=== PATIENT | female | born 1950 | race Hispanic/Latino ===

== ENCOUNTER 2019-12-11 07:11 | Observation (INO) | payer MEDICARE, MEDICAID ==
[~2019-12-11] VITALS: Ht 154.9 cm; Wt 63.6 kg
[~2019-12-11 07:11] MED LIST: ACTOS15 MG PO; CLARITIN10 M1 OR; GLUCOPHAGE1000 MG PO; ZESTRIL10 MG OR; ZITHROMAX250 MG PO; ZOCOR40 MG OR
--- NOTE | 2019-12-11 07:11 | NUR ---
PATIENT TO ROOM VIA WHEELCHAIR AND PHYSICIAN AT BEDSIDE FOR EXAM
--- NOTE | 2019-12-11 07:30 | NUR ---
PT C/O LEFT SIDED CHEST PAIN STARTING 3 DAYS PRIOR THAT RADIATES TO BACK. PATIENT SHOWING SINUS JESSICA AT A RATE OF 59. PATIENT UPDATED ON PLAN OF CARE AND WAIT TIME. CALL MARTINEZ WITHIN REACH.
[2019-12-11] MEDS ORDERED: SIMVASTATIN10 MG PO (07:52)
[2019-12-11] MEDS ORDERED: FARXIGA10 MG PO (07:52)
--- NOTE | 2019-12-11 08:00 | NUR ---
PATIENT REQUESTING TO TAKE PRESCRIPTION MEDICATIONS. OK WITH HER TAKING MEDICATIONS.
--- NOTE | 2019-12-11 08:20 | NUR ---
COVID SWAB COLLECTED. PT TOLERATED WELL.
[2019-12-11 08:29] LABS: HEMOGLOBIN 12.6 g/dl (12.0-16.0); IMMATURE GRANULOCYTES 0.2 % (0.0-5.0); MEAN CELL VOLUME 92.5 fL CALC (80.0-100.0); MEAN CORPUSCULAR HGB 29.6 pG CALC (26.0-32.0); NEUT# 2.41 thou/uL (2.00-7.15); RED BLOOD COUNT 4.26 mill/uL (4.20-5.60); RED CELL DISTRI WIDTH 13.2 % (11.5-15.5)
--- NOTE | 2019-12-11 08:34 | NUR ---
PATIENT RESTING IN STRETCHER IN NAD AND DENIES ANY NEEDS AT THIS TIME. PT REPORTS PAIN TO LEFT SIDE CHEST /10. PT DECLINES ANY PAIN MEDICATION AT THIS TIME. CALL MARTINEZ WITHIN REACH.
[2019-12-11 08:40] LABS: HEMATOCRIT 39.4 % (37.0-47.0)
[2019-12-11 08:43] LABS: ALBUMIN 4.2 g/dL (3.2-5.0); ALKALINE PHOSPHATASE 79 u/l (38-126); ANION GAP 13 (6-22 (CALC)); BILIRUBIN, TOTAL 0.4 mg/dL (0.0-1.4); BUN 20 mg/dL (8-23); BUN/CREATININE RATIO 30 (12-20 (CALC)); CARBON DIOXIDE 27 mmol/l (22-30); CHLORIDE 103 mmol/l (95-108); CREATININE 0.7 mg/dL (0.5-1.0); GFR > 60 ML/MIN (>=60 (CALC)); GFR FOR AFR.AMER. > 60 ML/MIN (>=60 (CALC)); POTASSIUM 4.5 mmol/l (3.5-5.1); SGOT/AST 22 u/l (9-36); SODIUM 138 mmol/l (137-146); TOTAL PROTEIN 7.4 g/dL (6.3-8.2)
--- NOTE | 2019-12-11 09:00 | NUR ---
PATIENT PAIN 2/10 AT THIS TIME.
[2019-12-11 09:11] LABS: MYOGLOBIN 47 ng/mL (0 - 62)
[2019-12-11 09:18] LABS: URINE BILIRUBIN - DIPSTICK NEGATIVE (NEGATIVE); URINE BLOOD DIPSTICK NEGATIVE (NEGATIVE); URINE COLOR YELLOW; URINE GLUCOSE - DIPSTICK >=1000 mg/dL (NEGATIVE); URINE KETONE NEGATIVE (NEGATIVE); URINE LEUK ESTERASE NEGATIVE (NEGATIVE); URINE NITRITE - DIPSTICK NEGATIVE (Negative); URINE PROTEIN - DIPSTICK NEGATIVE (NEG-TRACE); URINE UROBILINOGEN - DIPSTICK 0.2 E.U./dL (0.2)
--- NOTE | 2019-12-11 09:35 | NUR ---
MD AT BEDSIDE TO DISCUSS RESULTS AND PLAN FOR ADMISSION.
--- NOTE | 2019-12-11 10:13 | NUR ---
PT REPORT TO KRISTIN MCKAY.
--- NOTE | 2019-12-11 10:22 | NUR ---
Admission Note Report Given to: KRISTIN MCKAY Transported by: X Wheelchair Stretcher Transported with: X Nurse Transporter X Patent IV O2 X Bid Analyst Location: ICU X MS2 PATIENT TO ROOM 273 IN STABLE CONDITION.
--- NOTE | 2019-12-11 10:24 | NUR ---
RECIEVED REPORT FROM AUTUMN HANNON. PT ARRIVED TO [facility] ROOM 273 VIA PORTABLE ACCOMPAINED BY AUTUMN HANNON AND DAUGHTER. PT AMBULATED FROM PORATBLE TO BED WITH STEADY GAIT. INTRODUCED SELF TO PT AND DISCUSSED POC.PT IS PRIMARLY CITIZEN OF [place] SPEAKING BUT DOES SPEAK SOME [place], DAUGHTER AT BEDSIDE TO ASSIST WITH TRANSLATION IF NEEDED. ASSESSMENT AND VITALS COMPLETED AT THIS TIME. RESRPIATIONS ARE EVEN AND UNLABORED. LUNG SOUNDS ARE CLEAR. HEART RHYTHM IS NORMAL WITH TELE IN PLACE. RADIAL AND PEDAL PULSES ARE STRONG WITH NORMAL CAPILLARY REFILL. #20 IN LAC FLUSHED, SITE APPEARS HEALTHY AND PATENT. SKIN IS WARM AND DRY WITH NO BREAKDOWN. PT COMPLAINS OF 1/10 PAIN IN CHEST, PT REFUSED PAIN MEDICTAION. PT INFORMS WRITTER THAT SHE PRESENTED TO [facility] DUE TO" CHEST PAIN THAT SHES BEENING HAVING FOR A FEW DAYS." PT INFORMS WRITTER THAT "THE CHEST PAIN STARTS RANDOMLY." PT ORIENTED TO ROOM AND CALL LIGHT SYSTEM. PT INFORMS WRITTER THAT SHE HAS ALLERGY TO ASPIRIN, ALLERGY BAND APPLIED WITH FALL RISK BAND. HOME MEDICTAION FARIGA PRESENT, AWAITNG FOR PHARMACY APPROVAL.ALL OTHER HOME MEDS TO BE SENT HOME WITH DAUGHTER. ALL SAFETY PRECAUTIONS ARE IN PLACE WITH CALL LIGHT IN REACH. WILL CONTINUE TO MONITOR
[2019-12-11 10:29] VITALS: BP 157/76
[2019-12-11 10:30] VITALS: BP 129/72
--- NOTE | 2019-12-11 12:09 | NUR ---
PT RESING IN SEMI FOWLERS POSIITION EATING LUNCH WITH DAUGHTER AT BEDSIDE. RESPIRATIONS ARE EVEN AND UNLABORED WITH NO SIGNS OF DISTRESS TO BE NOTED. ASSESSMENT REMAINS THE SAME. ALL SAFETY PRECAUTIONS RE-ENFORCED WITH CALL LIGHT IN REACH. WILL CONTINUE TO MONITOR
[2019-12-11 15:00] VITALS: BP 124/76
--- NOTE | 2019-12-11 15:52 | NUR ---
PT RESING IN SEMI FOWLERS POSITION ON RIGHT SIDE. RESPIRATIONS ARE EVEN ADN UNLABORED NO SIGNS OF ANY DISTRESS. PT DENIES ANY PAIN OR DISCOMFORTS AT THIS TIME.ASSESSMENT REAMINS THE SAME. ALL SAFTEY PRECAUTIONS ARE IN PLACE WITH CALL LIGHT IN REACH. WILL CONTINUE TO MONITOR.
[2019-12-11 19:05] VITALS: BP 129/71
--- NOTE | 2019-12-11 19:45 | NUR ---
PT AWAKE RESTING IN BED. RESP EVEN AND UNLABORED. LUNGS CLEAR BILAT. ABD SOFT AND NONDISTENDED WITH BOWEL SOUNDS PRESENT. NO LOWER EXT EDEMA NOTED. PEDAL PULSES PALPATED. HEPLOCK IS PATENT. TELE SR. DENIES ANY DISCOMFORT. PT DOES SPEAK SOME BRUNEIAN AND DOES UNDERSTAND SOME BRUNEIAN. FREQUENT ROUNDS MADE. CALL MARTINEZ WITHIN REACH.
[2019-12-12 00:03] VITALS: BP 112/63
--- NOTE | 2019-12-12 00:29 | NUR ---
RESTING IN BED WITH EYES CLOSED. RESP EVEN AND UNLABORED. NO DISTRESS NOTED. HEPLOCK IS PATENT. TELE SB. FREQUENT ROUNDS MADE. CALL MARTINEZ WITHIN REACH.
[2019-12-12 03:50] VITALS: BP 112/56
--- NOTE | 2019-12-12 04:22 | NUR ---
RESTING IN BED WITH EYES CLOSED. RESP EVEN AND UNLABORED. NO DISTRESS NOTED. HEPLOCK IS PATENT. TELE SB. ASSESSMENT UNCHANGED. FREQUENT ROUNDS MADE. CALL MARTINEZ WITHIN REACH.
[2019-12-12 07:49] VITALS: BP 126/63
--- NOTE | 2019-12-12 08:00 | NUR ---
ASSESSMENT DONE. PT IS A&O X3. PT DENIES PAIN AT THIS TIME. RESPS EVEN AND UNLABORED. TELE IN PLACE. PT DENIES ANY NEEDS AT THIS TIME. CALL LIGHT IN REACH
[2019-12-12 10:30] VITALS: BP 139/73
--- NOTE | 2019-12-12 12:15 | NUR ---
PT IS SITTING IN THE CHAIR VISITING WITH FAMILY MEMBER. PT DENIES ANY NEEDS AT THIS TIME. CALL LIGHT IN REACH.
--- NOTE | 2019-12-12 13:49 | NUR ---
Discharge instructions given. Patient verbalizes understanding of same. Discharged in stable condition via Wheelchair to Home with staff. All belongings sent with pt.
== END 2019-12-12 13:50 | disposition home or self-care (01) ==
LOC: ED 07:11 → ED-I 07:46 → ED 07:46 → ED-I 09:09 → ED 09:30 → MS2 09:31
PROVIDERS: Emergency Medicine; ADMIT Internal Medicine; ATTEND Internal Medicine
DX: R07.9 Chest pain, unspecified (principal); I10 Essential (primary) hypertension; E11.9 Type 2 diabetes mellitus without complications; E78.5 Hyperlipidemia, unspecified; Z79.84 Long term (current) use of oral hypoglycemic drugs; Z20.828 Contact with and (suspected) exposure to other viral communicable diseases
CPT/HCPCS: G0378